=== PATIENT | female | born 1990 | race Caucasian/White ===

== ENCOUNTER 2016-04-02 16:31 | Emergency (ER) | payer BC, OTHER ==
[~2016-04-02] VITALS: Wt 109.0 kg
--- NOTE | 2016-04-02 17:26 | EN ---
Date/Time of Note Date/Time of Note DATE: 04/02/16 TIME: 17:25 ER Progress Note This is a 25-year-old female presenting to the emergency department who was evaluated RME with lumbar back pain that started suddenly last night. On examination patient located the pain on the lumbar spine midline, she describes the pain coming from the bone and radiating outward. Patient did not have any neuro deficits however she will be sent to ER to for a lumbar x-ray and for medication. RUDI RIVERA PA-C Apr 02, 2016 17:26
[2016-04-02] MEDS ORDERED: KETOROLAC 15 MG INJ IM STA (19:51)
[2016-04-02] MEDS ORDERED: DIAZEPAM 5 MG TAB PO ONE (20:00)
[2016-04-02 20:35] LABS: URINE BLOOD (Dip) POC 3+ (NEGATIVE)
[2016-04-02 21:26] LABS: URINE BLOOD (Dip) POC 2+ (NEGATIVE)
--- NOTE | 2016-04-02 21:53 | ERD ---
ER Documentation Chief Complaint Date/Time DATE: 04/02/16 TIME: 21:48 Chief Complaint BACK PAIN SINCE LAST NIGHT. NON PROVOKED. NO NEURO MOTOR DEFICIT HPI Pleasant 25-year-old female reporting more pain starting last night. Patient reports that she came home from work and felt her back "twinging". Patient woke this morning with worsening of back pain. States she went to work and now pain is 8/10 on pain scale. Patient describes pain as heavy pinching sensation worse with sitting, no position of comfort reported. Patient reports history of sciatica but has no sciatica pain present today. Patient denies hematuria, reports dysuria at end of void. Patient denies nausea, vomiting, fever, chills. ROS All systems reviewed and are negative except as per history of present illness. Medications Home Meds Active Scripts Ibuprofen* (Motrin*) 600 Mg Tab, 600 MG PO Q6, #30 TAB Prov:CALEB,CONNER 04/02/16 Nitrofurantoin Monohyd Macrocr* (Macrobid*) 100 Mg Capsr, 100 MG PO HS for 7 Days, CAP Prov:CALEB,CONNER 04/02/16 Reported Medications [Unk] No Conflict Check 03/30/09 Allergies Allergies: Coded Allergies: No Known Drug Allergies (Verified Allergy, Mild, 03/30/09) PMhx/Soc History of Surgery: No Hx Neurological Disorder: No Hx Respiratory Disorders: Yes (ASTHMA) Hx Cardiac Disorders: No Hx Miscellaneous Medical Probl: Yes (OVARIAN CYST; SCIATICA PAIN) Hx Alcohol Use: No Hx Substance Use: No Hx Tobacco Use: No Smoking Status: Never smoker Physical Exam Vitals Vital Signs Date Time Temp Pulse Resp B/P Pulse Ox O2 Delivery O2 Flow Rate FiO2 04/02/16 22:17 82 16 129/74 100 Room Air 04/02/16 16:50 99.6 94 20 153/75 99 Vitals stable, nursing notes reviewed Physical Exam Const: [] Head: Atraumatic Eyes: Normal Conjunctiva ENT: Normal External Ears, Nose and Mouth. Neck: Full range of motion..~ No meningismus. Resp: Clear to auscultation bilaterally Cardio: Regular rate and rhythm, no murmurs Abd: Soft, non tender, non distended. Normal bowel sounds Skin: No petechiae or rashes Back: No midline or flank tenderness Ext: No cyanosis, or edema Neur: Awake and alert Psych: Normal Mood and Affect Results 24 hrs Laboratory Tests Test 04/02/16 20:37 04/02/16 21:28 Bedside Urine Blood 3+ 2+ Bedside Urine Glucose (UA) Negative Negative Bedside Urine Ketones (LAB) Negative Trace Bedside Urine Leukocyte Esterase (L 1+ 1+ Bedside Urine Nitrite (LAB) Negative Negative Bedside Urine Protein (LAB) 2+ 2+ Bedside Urine pH (LAB) 6.0 5.5 Current Medications Medications (Trade) Dose Ordered Sig/Abdiel Route PRN Reason Start Time Stop Time Status Last Admin Dose Admin Ketorolac Tromethamine (Toradol) 15 mg ONCE STAT IM 04/02/16 19:51 04/02/16 19:53 DC 04/02/16 20:17 Diazepam (Valium) 5 mg ONCE ONCE PO 04/02/16 20:00 04/02/16 20:01 DC 04/02/16 20:17 Interpretation teck Hematuria, and leukocytes present on urinalysis suggestive of infection. Procedures/MDM Pleasant 25-year-old female presents to the emergency department for back pain. Progressively worsening and hematuria post void. Acute back injury is not suspected, without injury. Or pre-existing history. Patient treated effectively for back pain with Toradol and Valium. Urinalysis confirms urinary tract infection. Patient is afebrile, pyelonephritis is included in differential but not suspected at this time, I feel the patient is stable for discharge at this time. I have discussed results, examination findings, the treatment plan with the patient and family present prior to discharge. Indications for emergent reevaluation, side effects of medication were also discussed. All questions were answered. Patient verbalizes understanding and agrees with plan of care. CONNER ELLIS Apr 02, 2016 21:53
[2016-04-02] MEDS ORDERED: NITR-58 PO (21:58)
[2016-04-02] MEDS ORDERED: IBUP-1542 PO (22:00)
[2016-04-02 22:17] VITALS: BP 129/74; PULSE 82; RESP 16
== END 2016-04-02 22:18 | disposition home or self-care (01) ==
LOC: FTE 16:31
DX: N39.0 Urinary tract infection, site not specified (principal); J45.909 Unspecified asthma, uncomplicated
CPT/HCPCS: 81003; 96372; 99284; J1885